=== PATIENT | male | born 1985 | race Caucasian/White ===

== ENCOUNTER 2020-06-12 00:44 | Outpatient (CLI) | payer OTHER, SELFPAY ==
[2020-06-14 09:30] LABS: SARS-CoV-2 RNA Not Detected (NotDetected); SARS-CoV-2 RNA Source Nasal/Nares
== END 2020-06-12 01:04 ==
PROVIDERS: PCP Internal Medicine; Visit Provider Surgery
DX: Z11.59 Encounter for screening for other viral diseases (principal); Z01.818 Encounter for other preprocedural examination
CPT/HCPCS: U0003

== ENCOUNTER 2020-06-16 06:09 | Day surgery (SDC) | payer OTHER, SELFPAY ==
[2020-06-16] VITALS (7 sets, daily range): BP systolic 108–128; BP diastolic 54–83; PULSE 89–117; RESP 10–22; TEMP 36.1–36.6; O2SAT 93–98
[2020-06-16] MEDS: Lactated Ringers 1,000 ML 80 ML IV (06:43)
[2020-06-16] MEDS: Bupivacaine 0.25% Pres-Free 30 ML VIAL (07:57)
[2020-06-16] MEDS: Lidocaine 1% Multi-Dose 50 ML VIAL (07:58)
--- NOTE | 2020-06-16 09:22 | PDOC.DSDIS_ITS ---
Discharge Plan Disposition Patient Disposition: HOME Condition: Good Discharge Details Reason For Visit: Umbilical hernia repair with mesh Attending Provider: Anyi Stewart Primary Care Provider: Allison Espinosa Home Meds and New Rx's Prescriptions: Continued fluticasone propionate [Flonase Allergy Relief] 50 mcg/actuation spray,suspension 1 spray intranasal DAILY RF: 0 fexofenadine [Evelyne Allergy] 60 mg tablet 60 mg PO BID RF: 0 clobetasol 0.05 % cream 1 applic topical BID RF: 0 Discharge Instructions Additional Instructions: The top bandage can be removed tomorrow. The steri strips will usually stick for about a week. When the edges start to curl up, they can be removed. It is okay to shower tomorrow, the water can run over the steri strips Do not swim or soak in a tub for two weeks Call for any concerns including fever, increased pain, vomiting, incision redness or drainage. Do not lift more than 15 pounds for four weeks. Walking and stairs are fine. Do not drive if on narcotic pain meds or if limited by pain. May use Tylenol alternating with ibuprofen for pain control. Ice is also an option. The maximum dose for Tylenol is 4000 mg/day. May use ibuprofen 800 mg every 8 hours as needed. If concerned about constipation, you may use a stool softener or milk of magnesia. Referrals: Anyi Stewart MD [ [facility]YSICIAN] - (Return in 10-14 days for a postop check as needed.) Activity:: Do not lift more than 15 pounds for 4 weeks Remove Dressings/Wound Care:: 24 hours Shower/Bathe:: 24 hours Diet:: As Tolerated Discharge Orders Discharge Orders: Discharge Order (Routine); Ordered 06/16/20 Ordered By: Anyi Stewart DS: Diagnosis Discharge Diagnosis (1) Umbilical hernia without obstruction and without gangrene: Status: Acute
--- NOTE | 2020-06-16 09:30 | W.PM.OP ---
Operative Note Operative Note DATE OF PROCEDURE: 06/16/20 PRE-OP DIAGNOSIS: Umbilical hernia POST-OP DIAGNOSIS: same PROCEDURE: Umbilical hernia repair with mesh SURGEON: Anyi Stewart INSURANCE ASSOCIATE: Kerrie Bolaños ANESTHESIA: GETA and local Indications: This 34 year old presents with an uncomfortable, not-reducible fat-containing umbilical hernia. Procedure Description: The patient was placed supine on the operating table and after induction of general anesthetic had his periumbilical region prepped and draped sterilely. An incision was made just to the right of the umbilicus and in the lower midline. Subcutaneous tissue was divided with cautery to expose the fat-containing hernia sac. This was dissected off the posterior umbilical skin sharply and dissected from the surrounding subcutaneous tissue with cautery. The sac was reduced through a fascial defect measuring about 1.5 cm. The fascial edges were cleared off and a preperitoneal space created. The small Ventralex mesh was inserted and tacked in 4 quadrants with buried interrupted 0 Prolene mattress stitches. The redundant fascia was closed over the mesh with interrupted 0 Vicryl sutures. The umbilical skin was tacked down with a 2-0 Vicryl stitch and the subcutaneous tissue reapproximated with the Vicryl. The skin was then closed with a running 4-0 Monocryl subcuticular stitch. The patient did have some bronchospasm after the procedure which is likely related to a URI he had a few weeks ago. He was ultimately transferred stable to recovery.
== END 2020-06-16 10:59 | disposition home or self-care (01) ==
PROVIDERS: PCP Internal Medicine; Visit Provider Surgery
PROC: (CPT 49585; principal; 2020-06-16 07:30)
DX: K42.9 Umbilical hernia without obstruction or gangrene (principal)
CPT/HCPCS: 49585; C1781; J1100; J2001; J2405